=== PATIENT | male | born 1985 | race Caucasian/White ===

== ENCOUNTER 2017-09-16 03:00 | Emergency (ER) | payer OTHER ==
[~2017-09-16] VITALS: Ht 180.3 cm; Wt 77.1 kg
[~2017-09-16 03:00] MED LIST: BUPR-79 PO; FURO-85 PO; SILV1CRE73 TOP
[2017-09-16 03:05] VITALS: TEMP 36.8; Ht 180.3 cm; Wt 77.1 kg
[2017-09-16] MEDS ORDERED: BUPR8SUB19 PO (03:18)
[2017-09-16] MEDS ORDERED: RTL20 PO (03:19)
[2017-09-16 03:45] LABS: BASO % 0.6 %; BASO ABS # 0.03 K/uL (0-0.2); EOS % 6.3 %; EOS ABS # 0.32 K/uL (0-0.5); HEMATOCRIT 40.7 % (42-52); HEMOGLOBIN 14.1 g/dL (14.0-18.0); IG# 0.01 K/uL (0.00-0.02); LYMPH ABS # 2.05 K/uL (1.2-3.4); MEAN CELL VOLUME 90.6 fL (80-100); MEAN CORPUSCULAR HEMOGLOBIN 31.4 pg (25-34); MEAN CORPUSCULAR HGB CONC 34.6 g/dl (32-36); MEAN PLATELET VOLUME 9.6 fL (7.4-10.4); MONO % 5.7 %; MONO ABS # 0.29 K/uL (0.11-0.59); NEUT % 47.2 %; NEUT ABS # 2.42 K/uL (1.4-6.5); PLATELET COUNT 209 K/uL (130-400); RED CELL DISTRIBUTION WIDTH CV 12.3 % (11.5-14.5); WHITE BLOOD COUNT 5.12 K/uL (4.8-10.8)
[2017-09-16 04:06] LABS: CALCIUM 8.6 mg/dl (8.5-10.1); CREATININE 1.08 mg/dl (0.60-1.40); POTASSIUM 3.4 mmol/L (3.5-5.1)
[2017-09-16] MEDS ORDERED: POTASSIUM CHLORIDE 10 MEQ TABCR PO STA (04:08)
[2017-09-16 05:05] VITALS: BP 106/69; PULSE 66; O2SAT 98
--- NOTE | 2017-09-16 05:12 | EMERGENCY ROOM VISIT NOTE ---
History First contact with patient: 03:08 Chief Complaint: HAND PAIN/INJURY Stated Complaint: R HAND PAIN, SWOLLEN, NUMBNESS TINGLING History of Present Illness The patient is a 31 year old male who presents to the Emergency Room with complaints of right hand pain and swelling for the past 2 weeks who just got out of alf 2 weeks ago. Patient has a history of IV drug abuse. Nothing recent. He has been treated for his hepatitis C reportedly. Patient continues to smoke. His right hand is his smoking hand. No trauma to the hand. Tetanus is current. Patient denies chest pain, dyspnea, fever, chills, weakness, elbow pain, lymphangitis, hand drop. Patient had DVTs before and not sure why. Review of Systems An 10 system review of systems was completed with positives and pertinent negatives listed in the HPI. Past Medical/Surgical History Social History Problems: (1) Hepatitis C Social History Smoking Status: Current Every Day Smoker Alcohol Use: none Drug Use: other Marital Status: single Housing Status: lives with family Occupation Status: employed Current/Historical Medications Scheduled Buprenorphine Hcl (Subutex), 8 MG PO BID Bupropion (Wellbutrin Sr), 150 MG PO DAILY Methylphenidate (Ritalin), 20 MG PO DAILY Physical Exam Vital Signs Date Time Temp Pulse Resp B/P (MAP) Pulse Ox O2 Delivery O2 Flow Rate FiO2 09/16/17 03:05 36.8 85 20 111/74 97 Room Air Physical Exam VITALS: Vitals are noted on the nurse's note and reviewed by myself. Vital signs stable. GENERAL: White male with tobacco odor, in no acute distress, nondiaphoretic, well-developed well-nourished. SKIN: Capillary reflex less than 2 seconds. HEENT: Normocephalic. PERRLA. EOMI. Nares patent. Mucous membranes moist. Neck is supple without nuchal rigidity. HEART: Regular rate and rhythm without murmurs gallops or rubs. LUNGS: Clear to auscultation bilaterally without wheezes, rales or rhonchi. No retractions or accessory muscle use. ABDOMEN: Positive bowel sounds x 4. Normal tympanic percussion. Soft, nontender, without masses or organomegaly. Chang sign negative. No guarding or rebound tenderness. MUSCULOSKELETAL: No gross musculoskeletal defects. Right hand nontender to palpation. Negative Tinel's, negative Phalen's. Right hand is slightly erythematous and edematous without lymphangitis. Radial pulses +2 equal and present bilaterally. Patient can fully extend and flex all fingers. Patient can give the okay sign. No wrist pain, forearm pain or elbow pain. NEURO: Patient was alert and oriented to person place and time. Normal sensation to light and sharp touch. No focal neurological deficits. Medical Decision & Procedures Laboratory Results 09/16/17 03:31 Red Blood Count 4.49, Mean Corpuscular Volume 90.6, Mean Corpuscular Hemoglobin 31.4, Mean Corpuscular Hemoglobin Concent 34.6, Mean Platelet Volume 9.6, Neutrophils (%) (Auto) 47.2, Lymphocytes (%) (Auto) 40.0, Monocytes (%) (Auto) 5.7, Eosinophils (%) (Auto) 6.3, Basophils (%) (Auto) 0.6, Neutrophils # (Auto) 2.42, Lymphocytes # (Auto) 2.05, Monocytes # (Auto) 0.29, Eosinophils # (Auto) 0.32, Basophils # (Auto) 0.03 09/16/17 03:31 Test 09/16/17 03:31 White Blood Count 5.12 K/uL (4.8-10.8) Red Blood Count 4.49 M/uL (4.7-6.1) Hemoglobin 14.1 g/dL (14.0-18.0) Hematocrit 40.7 % (42-52) Mean Corpuscular Volume 90.6 fL (80-100) Mean Corpuscular Hemoglobin 31.4 pg (25-34) Mean Corpuscular Hemoglobin Concent 34.6 g/dl (32-36) Platelet Count 209 K/uL (130-400) Mean Platelet Volume 9.6 fL (7.4-10.4) Neutrophils (%) (Auto) 47.2 % Lymphocytes (%) (Auto) 40.0 % Monocytes (%) (Auto) 5.7 % Eosinophils (%) (Auto) 6.3 % Basophils (%) (Auto) 0.6 % Neutrophils # (Auto) 2.42 K/uL (1.4-6.5) Lymphocytes # (Auto) 2.05 K/uL (1.2-3.4) Monocytes # (Auto) 0.29 K/uL (0.11-0.59) Eosinophils # (Auto) 0.32 K/uL (0-0.5) Basophils # (Auto) 0.03 K/uL (0-0.2) RDW Standard Deviation 41.0 fL (36.4-46.3) RDW Coefficient of Variation 12.3 % (11.5-14.5) Immature Granulocyte % (Auto) 0.2 % Immature Granulocyte # (Auto) 0.01 K/uL (0.00-0.02) Anion Gap 5.0 mmol/L (3-11) Est Creatinine Clear Calc Drug Dose 103.6 ml/min Estimated GFR () 104.0 Estimated GFR (Non- 89.7 BUN/Creatinine Ratio 9.0 (10-20) Calcium Level 8.6 mg/dl (8.5-10.1) Medications Administered Medications (Trade) Dose Ordered Sig/Stanley Route Start Time Stop Time Status Last Admin Dose Admin Potassium Chloride (Klor-Con M10) 10 meq NOW STAT PO 09/16/17 04:08 09/16/17 04:09 DC 09/16/17 04:12 10 MEQ ED Course Prior records reviewed and summarized above. Triage Nursing notes reviewed. The patient's history was concerning for swelling and pain in the hand Differential diagnosis: Etiologies such as DVT, musculoskeletal, infection, joint effusion, trauma, lymphedema, idiopathic, carpal tunnel syndrome, as well as others were entertained.. Physical examination: The physical examination revealed no signs of infection. Neurovascularly intact. ER treatment provided: Patient was observed On reassessment the patient felt better. Diagnostics interpreted by me: The labs revealed no leukocytosis. Hypokalemia this is replaced orally Imaging studies: US VENOUS RIGHT UPPER EXTREMITY: No evidence for deep venous thrombosis involving the right upper extremity. The right internal jugular vein is patent Radiologist: Igor Calderon MD Hand x-ray negative for fracture or dislocation per my interpretation This appears to be consistent with right hand redness and swelling possibly of unclear etiology. This could be early cellulitis and patient was started on antibiotics. Patient was neurovascularly and neurologically intact. No signs of DVT. His hand is slightly erythematous. No fracture. No leukocytosis. He was advised to follow-up family care in a few days here in the ER sooner for fevers, spreading of redness, numbness, tingling, worsening signs or symptoms or as needed. By the evaluation outlined above emergent etiologies such as DVT , septic joint, trauma, CHF, as well as others were deemed relatively unlikely. The pt informed about the findings as listed above. All questions were answered and pleased with the treatment. Return instructions were outlined and the patient was discharged in stable condition. Outpatient prescription management: Keflex, BD Referral: The patient was referred back to their primary care physician for follow-up in 2 to 3 days for a recheck of the current condition. Case reviewed with my attending The chart was completed utilizing [employer] voice recognition software. Grammatical errors, random word insertions, pronoun errors, and incomplete sentences are an occassional consequence of this system due to software limitations, ambient noise, and hardware issues. Any formal questions or concerns about the content, text, or information contained within the body of this dictation should be directly addressed to the physician machine operator assistant for clarification. Medical Decision As above Medication Reconcilliation Current Medication List: was personally reviewed by me Blood Pressure Screening Patient's blood pressure: Normal blood pressure Impression Primary Impression: Swelling of right hand Additional Impression: Hypokalemia Departure Information Dispostion Home / Self-Care Condition GOOD Referrals Jam Hope, D.O. (PCP) Patient Instructions My [facility] Additional Instructions Cephalexin(Keflex) 500mg: Take one pill four times daily for 10 days for your skin infection. All antibiotics can cause diarrhea. If this occurs and you feel worse or it does not resolve in 1-2 days follow up with your doctor or return to the Emergency Department as this could be signs of serious underlying problems. Any medication can cause an allergic reaction, stop the pills immediately and return to the ER for rash, hives, breathing difficulties, or swelling. Trimethoprim-Sulfamethoxazole(Bactrim DS): Take one pill twice daily for 10 days for your skin infection. All antibiotics can cause diarrhea. If this occurs and you feel worse or it does not resolve in 1-2 days follow up with your doctor or return to the Emergency Department as this could be signs of serious underlying problems. Any medication can cause an allergic reaction, stop the pills immediately and return to the ER for rash, hives, breathing difficulties, or swelling. Ibuprofen(Motrin, Advil) may be used for fever or pain. Use 600mg every six hours as needed. Take with food. Avoid using more than 2400mg in a 24 hour period. Do not use 2400mg per day for more than three consecutive days without physician direction. Prolonged inappropriate use can lead to stomach upset or ulcers. (AND/OR) Acetaminophen(Tylenol) may be used for fever or pain. Use 1000mg every six hours as needed. Avoid using more than 3000mg in a 24 hour period. Rest and drink plenty of fluids. Continue current medications. Return to the ER for severe pain, persistent fevers, spreading redness, or any worsening of your condition. Follow up with your primary physician within 2-3 days for a recheck of the current condition. Problem Qualifiers
[2017-09-16] MEDS ORDERED: CEPH500C2 PO (05:14)
[2017-09-16] MEDS ORDERED: SULF800T23 PO (05:14)
[2017-09-16] MEDS ORDERED: SEPTRA DS HOME PACK 1 EA VIAL PO ONE (05:15)
[2017-09-16] MEDS ORDERED: CEPHALEXIN 500MG HOME PACK 1 EA BTL PO ONE (05:15)
--- NOTE | 2017-09-16 06:47 | DIAGNOSTIC IMAGING REPORT ---
R HAND MIN 3 VIEWS ROUTINE CLINICAL HISTORY: Right hand swelling COMPARISON: None. DISCUSSION: No fractures or dislocations are visualized. No foreign bodies are visualized. There are no erosive or destructive changes. IMPRESSION: No significant bony abnormalities identified Electronically signed by: Pollo Strong M.D. 09/16/2017 6:45 AM Dictated Date/Time: 09/16/2017 6:45 AM
--- NOTE | 2017-09-16 07:06 | DIAGNOSTIC IMAGING REPORT ---
RIGHT UPPER EXTREMITY VENOUS DOPPLER HISTORY: right hand swelling COMPARISON STUDY: None. FINDINGS: The right internal jugular vein is patent. There is normal flow within the right subclavian vein. There is normal flow and compressibility within the right axillary, basilic, brachial, radial, ulnar, and visualized cephalic veins. IMPRESSION: No DVT within the right upper extremity. Electronically signed by: Tristan Bueno M.D. 09/16/2017 7:05 AM Dictated Date/Time: 09/16/2017 7:05 AM
== END 2017-09-16 05:28 | disposition home or self-care (01) ==
LOC: C.EDB 03:02 → C.EDA 05:28
DX: R60.0 Localized edema (principal); E87.6 Hypokalemia; M79.641 Pain in right hand; B19.20 Unspecified viral hepatitis C without hepatic coma; F17.200 Nicotine dependence, unspecified, uncomplicated; Z86.718 Personal history of other venous thrombosis and embolism